=== PATIENT | male | born 2000 | race Caucasian/White ===

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

== ENCOUNTER 2023-10-21 19:53 | Emergency (ER) | payer BC ==
--- NOTE | 2023-10-21 20:21 | ED ---
General Adult HPI - General Source: patient, RN notes reviewed, old records reviewed Mode of arrival: ambulatory Limitations: no limitations <Chad Cardoso - Last Filed: 10/21/23 20:19> <Nick Whitmore - Last Filed: 10/22/23 13:07> - General Chief complaint: Psychiatric Symptoms Stated complaint: Petition Time Seen by Provider: 10/21/23 20:11 - History of Present Illness Initial comments: 23-year-old male presents emergency department for mental health evaluation, suicidal thoughts, anger outbursts. Patient is clinically intoxicated upon arrival. He is being petitioned by his mother. According to the local area sales manager he has had some suicidal thoughts and statements. No specific plan, no suicide attempt. (Chad Cardoso) - Related Data Home Medications Medication Instructions Recorded Confirmed No Known Home Medications 10/21/23 10/21/23 Allergies Allergy/AdvReac Type Severity Reaction Status Date / Time amoxicillin [From Amoxil] Allergy Unknown Verified 10/21/23 20:40 Penicillins Allergy Unknown Verified 10/21/23 20:40 Review of Systems ROS Other: All systems not noted in ROS Statement are negative. <Chad Cardoso - Last Filed: 10/21/23 20:19> ROS Other: All systems not noted in ROS Statement are negative. <Nick Whitmore - Last Filed: 10/22/23 13:07> ROS Statement: Those systems with pertinent positive or pertinent negative responses have been documented in the HPI. Past Medical History Past Medical History: No Reported History History of Any Multi-Drug Resistant Organisms: None Reported Past Surgical History: No Surgical Hx Reported Past Psychological History: ADD/ADHD Smoking Status: Never smoker Past Alcohol Use History: None Reported Past Drug Use History: Marijuana <Chad Cardoso - Last Filed: 10/21/23 20:19> General Exam Limitations: no limitations General appearance: alert, appears intoxicated Head exam: Present: atraumatic, normocephalic Eye exam: Present: normal appearance, PERRL Neck exam: Present: normal inspection. Absent: tenderness Respiratory exam: Present: normal lung sounds bilaterally. Absent: respiratory distress Cardiovascular Exam: Present: regular rate, normal rhythm GI/Abdominal exam: Absent: distended Neurological exam: Present: alert, oriented X3, CN II-XII intact. Absent: motor sensory deficit Psychiatric exam: Present: depressed, anxious, suicidal ideation Skin exam: Present: warm, dry, intact <Chad Cardoso Vinod - Last Filed: 10/21/23 20:19> Course <Chad Cardoso Vinod - Last Filed: 10/21/23 20:19> Vital Signs 10/21/23 10/22/23 19:58 08:38 Temperature 98.2 F 98 F Pulse Rate 92 88 Respiratory 18 15 Rate Blood Pressure 131/80 133/74 O2 Sat by Pulse 97 97 Oximetry - Reevaluation(s) Reevaluation #1: 10/21/23 20:20 Clear for EPS when sober (Chad Cardoso) Medical Decision Making <HeashokmarleniChad Brock - Last Filed: 10/21/23 20:19> <HaimNick - Last Filed: 10/22/23 13:07> - Medical Decision Making Was pt. sent in by a medical professional or institution (, PA, COPY PREPARER, urgent care, hospital, or group home...) When possible be specific @ -No Did you speak to anyone other than the patient for history (EMS, parent, family, police, friend...)? What history was obtained from this source @ -No Did you review nursing and triage notes (agree or disagree)? Why? @ -I reviewed and agree with nursing and triage notes Were old charts reviewed (outside hosp., previous admission, EMS record, old EKG, old radiological studies, urgent care reports/EKG's, group home records)? Report findings @ -No old charts were reviewed Differential Diagnosis (chest pain, altered mental status, abdominal pain women, abdominal pain men, vaginal bleeding, weakness, fever, dyspnea, syncope, headache, dizziness, GI bleed, back pain, seizure, CVA, palpatations, mental health, musculoskeletal)? @ -Differential Mental Health Depression, anxiety, bipolar, psychosis, schizophrenia, borderline personality, situational depression, adjustment disorder, behavioral disorder, brain tumor, malingering, substance abuse, encephalopathy, medication reaction, dementia, hypothyroidism, degenerative neurologic disorder, lupus.... This is not meant to be all-inclusive list EKG interpreted by me (3pts min.). @ -As above X-rays interpreted by me (1pt min.). @ -None done CT interpreted by me (1pt min.). @ -None done U/S interpreted by me (1pt. min.). @ -None done What testing was considered but not performed or refused? (CT, X-rays, U/S, labs)? Why? @ -None What meds were considered but not given or refused? Why? @ -None Did you discuss the management of the patient with other professionals (professionals i.e. Dr., PA, COPY PREPARER, lab, RT, psych nurse, rn social work, brusher operator, teacher, correctional program officer, community case manager)? Give summary @ -No Was smoking cessation discussed for >3mins.? @ -No Was critical care preformed (if so, how long)? @ -No Were there social determinants of health that impacted care today? How? (Homelessness, low income, unemployed, alcoholism, drug addiction, transportation, low edu. Level, literacy, decrease access to med. care, [facility], rehab)? @ -No Was there de-escalation of care discussed even if they declined (Discuss DNR or withdrawal of care, Hospice)? DNR status @ -No What co-morbidities impacted this encounter? (DM, HTN, Smoking, COPD, CAD, Cancer, CVA, ARF, Chemo, Hep., AIDS, mental health diagnosis, sleep apnea, morbid obesity)? @ -None Was patient admitted / discharged? Hospital course, mention meds given and route, prescriptions, significant lab abnormalities, going to OR and other pertinent info. @ -Patient cleared for EPS when sober, awaiting final disposition. (Chad Cardoso) Case discussed with psychiatric mental health worker with plans for discharge. Patient reevaluated by myself, Dr. Whitmore. Patient resting comfortably in bed. Patient states he did state he was suicidal earlier but attributes that to his alcohol. Patient admits to having anger problems and problems with alcohol. Patient states now that he is sober he does not have anger problems and he denies suicidal ideation. Patient does contract for safety. Diagnosis: Depression, alcohol intoxication Acute, acute Patient will be discharged with plan for follow-up (Nick Whitmore) - Lab Data Lab Results 10/21/23 Range/Units 20:39 Urine Opiates Screen Not Detected (NotDetected) Ur Oxycodone Screen Not Detected (NotDetected) Urine Methadone Screen Not Detected (NotDetected) Ur Propoxyphene Screen Not Detected (NotDetected) Ur Barbiturates Screen Not Detected (NotDetected) U Tricyclic Antidepress Not Detected (NotDetected) Ur Phencyclidine Scrn Not Detected (NotDetected) Ur Amphetamines Screen Not Detected (NotDetected) U Methamphetamines Scrn Not Detected (NotDetected) U Benzodiazepines Scrn Not Detected (NotDetected) Urine Cocaine Screen Not Detected (NotDetected) U Marijuana (THC) Screen Detected H (NotDetected) Disposition <Chad Cardoso - Last Filed: 10/21/23 20:19> Is patient prescribed a controlled substance at d/c from ED?: No Time of Disposition: 13:07 <Nick Whitmore - Last Filed: 10/22/23 13:07> Clinical Impression: Depression, Alcohol intoxication Disposition: HOME SELF-CARE Condition: Stable Instructions (If sedation given, give patient instructions): Alcohol Intoxication (ED), Depression (ED) Additional Instructions: Discontinue alcohol use. Please do follow-up to primary care physician in the next couple days for recheck. Return for thoughts of self-harm, thoughts of harming others, worsening symptoms or any other concerns. Referrals: Hakan Bennett MD [Primary Care Provider] - 1-2 days
[2023-10-21 21:25] LABS: Amphetamine Screen,Urine Not Detected (NotDetected); Barbiturate Screen,Urine Not Detected (NotDetected); Benzodiazepines Screen,Urine Not Detected (NotDetected); Cocaine Screen,Urine Not Detected (NotDetected); Methadone Screen, Urine Not Detected (NotDetected); Opiate Screen,Urine Not Detected (NotDetected); Oxycodone Screen, Urine Not Detected (NotDetected); Phencyclidine Screen,Urine Not Detected (NotDetected); Tricyclic Antidepressant,Urine Not Detected (NotDetected); Urn Cannabinoid Scrn Detected (NotDetected)
[2023-10-21] MEDS ORDERED: LORazepam 1 MG TAB PO STA (23:25)
[2023-10-22 13:29] VITALS: BP 128/78; PULSE 78; RESP 16; TEMP 98.2
== END 2023-10-22 13:12 | disposition home or self-care (01) ==
LOC: EC 19:53
DX: F32.A Depression, unspecified (principal); F10.129 Alcohol abuse with intoxication, unspecified; F12.90 Cannabis use, unspecified, uncomplicated; Z88.0 Allergy status to penicillin; Z86.59 Personal history of other mental and behavioral disorders
CPT/HCPCS: 80306; 82075; 99285

== ENCOUNTER 2024-04-04 20:54 | Emergency (ER) | payer BC ==
--- NOTE | 2024-04-04 21:35 | ED ---
General Adult HPI - General Source: police, EMS, RN notes reviewed, old records reviewed Mode of arrival: EMS Limitations: altered mental status <Chad Cardoso - Last Filed: 04/04/24 23:23> <Lucio Acosta - Last Filed: 04/05/24 12:44> - General Chief complaint: Psychiatric Symptoms Stated complaint: psych Time Seen by Provider: 04/04/24 21:02 - History of Present Illness Initial comments: 24-year-old male presenting with alcohol intoxication, aggression, agitation, and suicidal ideation. Initial history is limited secondary to the patient's intoxication and agitation. Patient has been petitioned. (Chad Cardoso) - Related Data Home Medications Medication Instructions Recorded Confirmed No Known Home Medications 10/21/23 10/21/23 Allergies Allergy/AdvReac Type Severity Reaction Status Date / Time amoxicillin [From Amoxil] Allergy Unknown Verified 10/21/23 20:40 Penicillins Allergy Unknown Verified 10/21/23 20:40 Review of Systems ROS Other: All systems not noted in ROS Statement are negative. <Chad Cardoso - Last Filed: 04/04/24 23:23> ROS Other: All systems not noted in ROS Statement are negative. <Lucio Acosta - Last Filed: 04/05/24 12:44> ROS Statement: Those systems with pertinent positive or pertinent negative responses have been documented in the HPI. Past Medical History Past Medical History: No Reported History History of Any Multi-Drug Resistant Organisms: None Reported Past Surgical History: No Surgical Hx Reported Past Psychological History: ADD/ADHD Smoking Status: Never smoker Past Alcohol Use History: None Reported Past Drug Use History: Marijuana <Chad Cardoso - Last Filed: 04/04/24 23:23> General Exam General appearance: alert, anxious Head exam: Present: atraumatic, normocephalic Eye exam: Present: normal appearance, PERRL Respiratory exam: Present: normal lung sounds bilaterally. Absent: respiratory distress Cardiovascular Exam: Present: normal rhythm, tachycardia GI/Abdominal exam: Present: soft. Absent: distended, tenderness, guarding Neurological exam: Present: alert, motor sensory deficit Psychiatric exam: Present: agitated, suicidal ideation Skin exam: Present: warm, dry, intact <Chad Cardoso - Last Filed: 04/04/24 23:23> Course Vital Signs 04/04/24 04/05/24 21:06 05:37 Temperature 97.6 F 97.5 F L Pulse Rate 132 H 64 Respiratory 20 13 Rate Blood Pressure 162/90 97/57 O2 Sat by Pulse 96 100 Oximetry Procedures - Restraint - Face to Face Restraint Occurrence 1 Patient's Immediate Situation: Endangers self safety, Endangers others' safety, Endangers staff safety, Violent behavior Patient's Reaction to the Intervention: Uncooperative, Angry, Belligerent Patient's Medical & Behavioral Condition: Awake, Alert, Follows directions, Agitated Need to Continue or Terminate Restraint or Seclusion: Continue Face to Face Eval of Restraint Date: 04/04/24 Face to Face Eval of Restraint Time: 21:05 <Chad Cardoso - Last Filed: 04/04/24 23:23> Medical Decision Making - Lab Data Result diagrams: 04/04/24 21:48 04/04/24 21:48 <Chad Cardoso - Last Filed: 04/04/24 23:23> - Lab Data Result diagrams: 04/04/24 21:48 04/04/24 21:48 <Lucio Acosta - Last Filed: 04/05/24 12:44> - Medical Decision Making Was pt. sent in by a medical professional or institution (, PA, EXPLOITATION ANALYST, urgent care, hospital, or assisted...) When possible be specific @ -No Did you speak to anyone other than the patient for history (EMS, parent, family, police, friend...)? What history was obtained from this source @ -No Did you review nursing and triage notes (agree or disagree)? Why? @ -I reviewed and agree with nursing and triage notes Were old charts reviewed (outside hosp., previous admission, EMS record, old EKG, old radiological studies, urgent care reports/EKG's, assisted records)? Report findings @ -No old charts were reviewed Differential Mental Health Depression, anxiety, bipolar, psychosis, schizophrenia, borderline personality, situational depression, adjustment disorder, behavioral disorder, brain tumor, malingering, substance abuse, encephalopathy, medication reaction, dementia, hypothyroidism, degenerative neurologic disorder, lupus.... This is not meant to be all-inclusive list EKG interpreted by me (3pts min.). @ -As above X-rays interpreted by me (1pt min.). @ -None done CT interpreted by me (1pt min.). @ -None done U/S interpreted by me (1pt. min.). @ -None done What testing was considered but not performed or refused? (CT, X-rays, U/S, labs)? Why? @ -None What meds were considered but not given or refused? Why? @ -None Did you discuss the management of the patient with other professionals (professionals i.e. Dr., PA, EXPLOITATION ANALYST, lab, RT, psych nurse, social service worker, glueline worker, teacher, credit officer, case management coordinator)? Give summary @ -No Was smoking cessation discussed for >3mins.? @ -No Was critical care preformed (if so, how long)? @ -Yes, 35 minutes, suicidal ideation, agitated delirium, alcohol intoxication Were there social determinants of health that impacted care today? How? (Homelessness, low income, unemployed, alcoholism, drug addiction, transportat ion, low edu. Level, literacy, decrease access to med. care, snf, rehab)? @ -No Was there de-escalation of care discussed even if they declined (Discuss DNR or withdrawal of care, Hospice)? DNR status @ -No What co-morbidities impacted this encounter? (DM, HTN, Smoking, COPD, CAD, Cancer, CVA, ARF, Chemo, Hep., AIDS, mental health diagnosis, sleep apnea, morbid obesity)? @ -None Was patient admitted / discharged? Hospital course, mention meds given and route, prescriptions, significant lab abnormalities, going to OR and other pertinent info. @Patient presenting with acute alcohol intoxication, agitation. Patient requires restraints. He does have a significantly elevated alcohol 309. P atient observed in the emergency department awaiting sobriety and awaiting EPS evaluation. (Chad Cardoso) Was patient admitted / discharged? Hospital course, mention meds given and route, prescriptions, significant lab abnormalities, going to OR and other pertinent info. @ -EPS evaluated the patient and determined with the psychiatrist that the patient could be discharged home patient was given a safety plan. Patient was in agreement. Undiagnosed new problem with uncertain prognosis? @ -No Drug Therapy requiring intensive monitoring for toxicity (Heparin, Nitro, Insulin, Cardizem)? @ -No Were any procedures done? @ -No Diagnosis/symptom? @ -Alcohol intoxication Acute, or Chronic, or Acute on Chronic? @ -Acute Uncomplicated (without systemic symptoms) or Complicated (systemic symptoms)? @ -Complicated Side effects of treatment? @ -No Exacerbation, Progression, or Severe Exacerbation? @ -No Poses a threat to life or bodily function? How? (Chest pain, USA, OR, pneumonia, PE, COPD, DKA, ARF, appy, cholecystitis, CVA, Diverticulitis, Homicidal, Suicidal, threat to staff... and all critical care pts) @ -No Diagnosis/symptom? @ -Situational depression Acute, or Chronic, or Acute on Chronic? @ -Acute Uncomplicated (without systemic symptoms) or Complicated (systemic symptoms)? @ -Complicated Side effects of treatment? @ -None Exacerbation, Progression, or Severe Exacerbation] @ -No Poses a threat to life or bodily function? @ -No (Lucio Acosta) - Lab Data Lab Results 04/04/24 04/04/24 04/05/24 Range/Units 21:48 21:48 09:20 WBC 7.3 (3.8-10.6) k/uL RBC 5.36 (4.30-5.90) m/uL Hgb 16.9 (13.0-17.5) gm/dL Hct 50.3 (39.0-53.0) % MCV 93.9 (80.0-100.0) fL MCH 31.5 (25.0-35.0) pg MCHC 33.6 (31.0-37.0) g/dL RDW 12.6 (11.5-15.5) % Plt Count 239 (150-450) k/uL MPV 7.1 Neutrophils % 55 % Lymphocytes % 35 % Monocytes % 5 % Eosinophils % 1 % Basophils % 2 % Neutrophils # 4.0 (1.3-7.7) k/uL Lymphocytes # 2.5 (1.0-4.8) k/uL Monocytes # 0.4 (0-1.0) k/uL Eosinophils # 0.0 (0-0.7) k/uL Basophils # 0.1 (0-0.2) k/uL Sodium 146 H (137-145) mmol/L Potassium 4.0 (3.5-5.1) mmol/L Chloride 108 H (98-107) mmol/L Carbon Dioxide 20 L (22-30) mmol/L Anion Gap 18 mmol/L BUN 13 (9-20) mg/dL Creatinine 1.10 (0.66-1.25) mg/dL Est GFR (CKD-EPI)AfAm >90 (>60 ml/min/1.73 sqM) Est GFR (CKD-EPI)NonAf >90 (>60 ml/min/1.73 sqM) Glucose 102 H (74-99) mg/dL Calcium 10.0 (8.4-10.2) mg/dL Total Bilirubin 0.9 (0.2-1.3) mg/dL AST 40 (17-59) U/L ALT 21 (4-49) U/L Alkaline Phosphatase 66 (38-126) U/L Total Protein 9.0 H (6.3-8.2) g/dL Albumin 5.7 H (3.5-5.0) g/dL Urine Opiates Screen Not Detected (NotDetected) Ur Oxycodone Screen Not Detected (NotDetected) Urine Methadone Screen Not Detected (NotDetected) Ur Barbiturates Screen Not Detected (NotDetected) U Tricyclic Antidepress Not Detected (NotDetected) Ur Phencyclidine Scrn Not Detected (NotDetected) Ur Amphetamines Screen Not Detected (NotDetected) U Methamphetamines Scrn Not Detected (NotDetected) U Benzodiazepines Scrn Detected H (NotDetected) Urine Cocaine Screen Not Detected (NotDetected) U Marijuana (THC) Screen Detected H (NotDetected) Serum Alcohol 309 H* mg/dL Disposition <Chad Cardoso - Last Filed: 04/04/24 23:23> Is patient prescribed a controlled substance at d/c from ED?: No Time of Disposition: 12:44 <Lucio Acosta - Last Filed: 04/05/24 12:44> Clinical Impression: Situational depression, Alcohol intoxication Disposition: HOME SELF-CARE Condition: Good Instructions (If sedation given, give patient instructions): Alcohol Intoxication (ED) Referrals: None,Stated [Primary Care Provider] - 1-2 days
[2024-04-04] MEDS: LORazepam 2 MG/ML INJ IV STA (21:42)
[2024-04-04 22:03] LABS: Basophils # (A) 0.1 k/uL (0-0.2); Basophils % (A) 2 %; Eosinophils % (A) 1 %; HCT 50.3 % (39.0-53.0); HGB 16.9 gm/dL (13.0-17.5); Lymphocytes # (A) 2.5 k/uL (1.0-4.8); Lymphocytes % (A) 35 %; MCH 31.5 pg (25.0-35.0); MCHC 33.6 g/dL (31.0-37.0); MCV 93.9 fL (80.0-100.0); Mean Platelet Volume 7.1; Monocytes # (A) 0.4 k/uL (0-1.0); Monocytes % (A) 5 %; Neutrophils % (A) 55 %; Platelet Count 239 k/uL (150-450); RBC 5.36 m/uL (4.30-5.90); RDW 12.6 % (11.5-15.5); WBC 7.3 k/uL (3.8-10.6)
[2024-04-04 22:25] LABS: ALT 21 U/L (4-49); AST 40 U/L (17-59); African American GFR (CKD) >90 (>60 ml/min/1.73 sqM); Albumin 5.7 g/dL (3.5-5.0); Alkaline Phosphatase 66 U/L (38-126); Anion Gap 18 mmol/L; Blood Urea Nitrogen 13 mg/dL (9-20); Carbon Dioxide 20 mmol/L (22-30); Chloride 108 mmol/L (98-107); Glucose 102 mg/dL (74-99); Non-African American GFR(CKD) >90 (>60 ml/min/1.73 sqM); Sodium 146 mmol/L (137-145); Total Bilirubin 0.9 mg/dL (0.2-1.3)
[2024-04-04 22:39] LABS: Alcohol 309 mg/dL
[2024-04-04] MEDS: ZIPRASIDONE 20 MG VIAL IM STA (23:02)
[2024-04-05] MEDS: SODIUM CHLORIDE 0.9% 1,000 ML IV SCH (02:58)
[2024-04-05 09:44] LABS: Amphetamine Screen,Urine Not Detected (NotDetected); Barbiturate Screen,Urine Not Detected (NotDetected); Benzodiazepines Screen,Urine Detected (NotDetected); Cocaine Screen,Urine Not Detected (NotDetected); Methadone Screen, Urine Not Detected (NotDetected); Opiate Screen,Urine Not Detected (NotDetected); Oxycodone Screen, Urine Not Detected (NotDetected); Phencyclidine Screen,Urine Not Detected (NotDetected); Tricyclic Antidepressant,Urine Not Detected (NotDetected); Urn Cannabinoid Scrn Detected (NotDetected)
[2024-04-05 13:15] VITALS: BP 100/64; PULSE 68; RESP 18; TEMP 98.1
== END 2024-04-05 12:53 | disposition home or self-care (01) ==
LOC: EC 20:54
DX: F10.129 Alcohol abuse with intoxication, unspecified (principal); F43.21 Adjustment disorder with depressed mood; F12.90 Cannabis use, unspecified, uncomplicated; Z88.0 Allergy status to penicillin; Y90.8 Blood alcohol level of 240 mg/100 ml or more
CPT/HCPCS: 99291; 96374; 96372; 96361; 82075; 36415; 80053; 85025; 80306; 80320; J2060; J3486